=== PATIENT | female | born 1960 | race Hispanic/Latino ===

== ENCOUNTER → 2017-09-11 | Outpatient (CLI) | payer BC ==
[~2017-09-11] MED LIST: DIATRIZOATE MEGL/DIATRIZOA SOD 30 ML BTL PO ONE; IOPAMIDOL 370 MG/ML 200 ML INFUS..BTL INJ ONE; SODIUM CHLORIDE 0.9% 50ML 50 ML ONE
--- NOTE | 2017-09-11 13:24 | Diagnostic Imaging Report ---
PROCEDURE: CT ABDOMEN AND PELVIS WITH CONTRAST TECHNIQUE: The abdomen and pelvis were scanned utilizing a multidetector helical scanner from the diaphragm to the lesser trochanter after the IV administration of 100 cc of Isovue 370 and the oral administration of Gastrografin/water. Coronal and sagittal multiplanar reformations were obtained. COMPARISON: None. INDICATIONS: HERNIA FINDINGS: LOWER THORAX: Normal. HEPATOBILIARY: 1.6 cm focus of enhancement in the right hepatic lobe (series 2, image 19). Subcentimeter hypodensity in hepatic segment IV (series 2, image 33) is probably a cyst. No biliary ductal dilatation. SPLEEN: No splenomegaly. PANCREAS: No focal masses or ductal dilatation. ADRENALS: 1.3 cm right adrenal nodule is indeterminate. No left adrenal nodules. KIDNEYS/URETERS: No hydronephrosis, stones, or solid mass lesions. PELVIC ORGANS/BLADDER: Unremarkable. PERITONEUM / RETROPERITONEUM: No free air or fluid. LYMPH NODES: No lymphadenopathy. VESSELS: Unremarkable. GI TRACT: No distention or wall thickening. The appendix is normal. BONES AND SOFT TISSUES: Multilevel spondylosis of the thoracic and lumbar spine. Grade 1 anterolisthesis of L4. There is a supraumbilical ventral abdominal hernia which contains mesenteric fat, but no bowel. The hernia neck is 1.2 cm (series 2, image 50). The hernia sac measures approximately 5.3 x 2.1 x 3.7 cm. IMPRESSION: Fat containing, supraumbilical ventral bowel hernia as above. No bowel involvement. Indeterminate 1.3 cm right adrenal nodule. Recommend adrenal protocol MRI of the abdomen (with without contrast) for further evaluation. 1.6 cm focus of enhancement in the right hepatic lobe is indeterminate. This is most likely benign, assuming no history of chronic hepatitis or malignancy. This can also be evaluated on MRI of the abdomen (with and without contrast. Dictated by: Angel Morejon M.D. on 09/11/2017 at 13:26 Electronically approved by: Angel Morejon M.D. on 09/11/2017 at 13:26
== END ==
LOC: CT 11:28
PROVIDERS: ATTEND Surgery
DX: K43.0 Incisional hernia with obstruction, without gangrene (principal)
CPT/HCPCS: 74177; Q9967

== ENCOUNTER → 2017-09-29 | Day surgery (SDC) | payer BC ==
[2017-09-26 12:45] LABS: BASOPHILS % 0.3 % (0.0-1.0); EOSINOPHILS # (AUTO) 0.2 (0.0-0.4); EOSINOPHILS % 1.8 % (0.0-6.0); HEMATOCRIT 38.8 % (34.2-44.1); HEMOGLOBIN 13.1 g/dL (12.0-16.0); LYMPHOCYTES # (AUTO) 3.1 (1.0-3.2); LYMPHOCYTES % 28.1 % (18.0-39.1); MEAN CORPUSCULAR HEMOGLOBIN 32.8 pg (28-32); MEAN CORPUSCULAR HGB CONC 33.8 g/dL (31-35); MONOCYTES # (AUTO) 0.5 (0.2-0.8); MONOCYTES % 4.3 % (4.4-11.3); NEUTROPHILS # (AUTO) 7.2 (2.1-6.9); NEUTROPHILS % 65.1 % (38.7-80.0); PLATELET COUNT 334 x10e3/uL (140-360); RED CELL DISTRIBUTION WIDTH 12.6 % (11.7-14.4)
[2017-09-26 13:08] LABS: ALANINE AMINOTRANSFERASE 14 IU/L (0-55); ALBUMIN/GLOBULIN RATIO 1.3 (0.8-2.0); ALKALINE PHOSPHATASE 59 IU/L (40-150); ANION GAP 12.3 mmol/L (8-16); BLOOD UREA NITROGEN 14 mg/dL (7-26); BUN/CREATININE RATIO 20 (6-25); CARBON DIOXIDE 31 mmol/L (22-29); CHLORIDE 101 mmol/L (98-107); CREATININE, SERUM 0.69 mg/dL (0.57-1.11); EST GLOMERULAR FILTRATION RATE > 60 ML/MIN (60-); GLUCOSE 101 mg/dL (74-118); POTASSIUM 4.3 mmol/L (3.5-5.1); SODIUM 140 mmol/L (136-145)
[~2017-09-29] MED LIST changes: +BACITRACIN 50,000 UNIT VIAL ONE; +BUPIVACAINE 0.25% 30ML SDV INJ ONE; +CEFAZOLIN SOD 2 GM/D5W 50ML 50 ML IV ONE; +DEXAMETHASONE SOD PHOS INJ 4 MG/ML VIAL ONE; -DIATRIZOATE MEGL/DIATRIZOA SOD 30 ML BTL PO ONE; +FENTANYL CITRATE/PF 100MCG/2 ML INJ ONE; +GLYCOPYRROLATE INJ 1MG/ 5 ML SYR ONE; +IBUPROFEN200 MG PO; -IOPAMIDOL 370 MG/ML 200 ML INFUS..BTL INJ ONE; +LIDOCAINE HCL (LTA) 4 ML SOLN ONE; +LIDOCAINE HCL 2% LOCAL INJ 5 ML SDV VIAL INJ ONE; +MIDAZOLAM HCL 2 MG/2 ML VIAL ONE; +NEOSTIGMINE 5 MG/5ML SYR ONE; +ONDANSETRON HCL INJ 2 MG/ML VIAL ONE; +PROPOFOL IV EMULSION 10 MG/ML 20 ML VIAL ONE; +ROCURONIUM BROMIDE 10 MG/ML 5ML VIAL ONE; +SEVOFLURANE INHAL SOLN 250 ML PEN BTL ONE; -SODIUM CHLORIDE 0.9% 50ML 50 ML ONE
--- OUTSIDE RECORDS SUMMARY | 2017-09-29 10:40 | XMS REPORT ---
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 Allergies, Adverse Reactions, Alerts This patient has no known allergies or adverse reactions. Medications This patient has no known medications. Results Test Description Test Time Test Comments Text Results Atomic Results Result Comments CT ABDOMEN/PELVIS W [place] [id number] Patient Name: FILIPE GARCIA MR #: [id number] : 1960 Age/Sex: 56/F Req #: [id number] Adm Physician: Ordered by: RAUL SAN MD Report #: [id number] Location: CT Room/Bed: Procedure: [id number] CT/CT ABDOMEN/PELVIS W Exam Date: 09/11/17 Exam Time: 1240 REPORT STATUS: Signed PROCEDURE: CT ABDOMEN AND PELVIS WITH CONTRAST TECHNIQUE: The abdomen and pelvis were scanned utilizing a multidetector helical scanner from the diaphragm to the lesser trochanter after the IV administration of 100 cc of Isovue 370 and the oral administration of Gastrografin/water. Coronal and sagittal multiplanar reformations were obtained. COMPARISON: None. INDICATIONS: HERNIA FINDINGS: LOWER THORAX: Normal. HEPATOBILIARY: 1.6 cm focus of enhancement in the right hepatic lobe (series 2, image 19). Subcentimeter hypodensity in hepatic segment IV (series 2, image 33) is probably a cyst. No biliary ductal dilatation. SPLEEN: No splenomegaly. PANCREAS: No focal masses or ductal dilatation. ADRENALS: 1.3 cm right adrenal nodule is indeterminate. No left adrenal nodules. KIDNEYS/URETERS: No hydronephrosis, stones, or solid mass lesions. PELVIC ORGANS/BLADDER: Unremarkable. PERITONEUM / RETROPERITONEUM: No free air or fluid. LYMPH NODES: No lymphadenopathy. VESSELS: Unremarkable. GI TRACT: No distention or wall thickening. The appendix is normal. BONES AND SOFT TISSUES: Multilevel spondylosis of the thoracic and lumbar spine. Grade 1 anterolisthesis of L4. There is a supraumbilical ventral abdominal hernia which contains mesenteric fat, but no bowel. The hernia neck is 1.2 cm (series 2, image 50). The hernia sac measures approximately 5.3 x 2.1 x 3.7 cm. IMPRESSION: Fat containing, supraumbilical ventral bowel hernia as above. No bowel involvement. Indeterminate 1.3 cm right adrenal nodule. Recommend adrenal protocol MRI of the abdomen (with without contrast) for further evaluation. 1.6 cm focus of enhancement in the right hepatic lobe is indeterminate. This is most likely benign, assuming no history of chronic hepatitis or malignancy. This can also be evaluated on MRI of the abdomen (with and without contrast. Dictated by: Salima Morejon M.D. on 09/11/2017 at 13: 26 Electronically approved by: Salima Morejon M.D. on 09/11/2017 at 13: 26 Dictated By: SALIMA MOREJON MD [id number] Transcribed By: RENZO on 09/11/17 1326 COPY TO: RAUL SAN MD
--- NOTE | 2017-09-29 15:39 | Operative Report ---
DATE OF PROCEDURE: September 29, 2017 PREOPERATIVE DIAGNOSIS: Incarcerated incisional hernia. POSTOPERATIVE DIAGNOSIS: Incarcerated incisional hernia. OPERATIVE PROCEDURE: Repair incarcerated incisional hernia. ANESTHESIA: General. INDICATIONS: A 56-year-old female with a bulge in the supraumbilical region for several months with CT scan showing incarcerated omentum and mesentery fat and an incisional hernia. Patient had consented for repair of this incisional hernia with all attendant risks discussed. PROCEDURE FINDINGS: Incarcerated omentum in the incisional hernia. DESCRIPTION OF PROCEDURE: The patient brought to the OR intubated. Abdomen prepped with alcohol and draped in sterile fashion. A supraumbilical curvilinear incision is made down to the subcutaneous tissue. Hernia sac identified and it is noted to contain omentum. The hernia sac was opened. Incarcerated omentum was amputated with cautery. Hemostasis achieved. The omental stump is reduced intraperitoneally. The fascial edge measured approximately 1 inch in diameter and it is closed in a transverse direction with interrupted 0 Prolene suture approximating the fascia. Subcutaneous tissue approximated with 3-0 Vicryl. Skin closed with subcuticular stitch of 4-0 Vicryl. Dressing applied. Patient is extubated, transported recovery room. ESTIMATED BLOOD LOSS: 5 mL. Job#: [id number] PAOLA
== END | disposition home or self-care (01) ==
LOC: OR 10:38
PROVIDERS: ATTEND Surgery
DX: K43.0 Incisional hernia with obstruction, without gangrene (principal); B15.9 Hepatitis A without hepatic coma; Z01.810 Encounter for preprocedural cardiovascular examination; Z01.812 Encounter for preprocedural laboratory examination; Z87.891 Personal history of nicotine dependence
CPT/HCPCS: 36415; 49561; 80053; 85025; 88305; 93005; J1100; J2001; J2250; J2405; J3490